=== PATIENT | male | born 2000 | race Two or more races ===

== ENCOUNTER 2021-01-24 00:49 | Emergency (ER) | payer SELFPAY ==
[~2021-01-24] VITALS: Ht 171.4 cm; Wt 93.7 kg
[2021-01-24] MEDS ORDERED: ONDANSETRON ODT 4 MG PO ONE (01:30)
[2021-01-24] MEDS ORDERED: THIAMINE 100MG TABLET PO ONE (01:30)
[2021-01-24] MEDS ORDERED: ONDANSETRON ODT 4 MG ONE (01:37)
[2021-01-24] MEDS ORDERED: THIAMINE 100MG TABLET ONE (01:37)
[2021-01-24 02:01] VITALS: BP 119/87
== END 2021-01-24 02:03 | disposition home or self-care (01) ==
LOC: ED 01:57
DX: F41.1 Generalized anxiety disorder (principal); R11.0 Nausea; R00.0 Tachycardia, unspecified; F17.210 Nicotine dependence, cigarettes, uncomplicated
CPT/HCPCS: 93005; 99284; 99406; Q0162